=== PATIENT | female | born 1955 | race Caucasian/White ===

== ENCOUNTER → 2016-07-28 | Outpatient (CLI) | payer MEDICARE, OTHER | LOC: SP 12:30 | PROVIDERS: ATTEND Internal Medicine Clinical Cardiac Electrophysiology | DX: M79.622 Pain in left upper arm (principal) | CPT/HCPCS: 93971 ==

== ENCOUNTER 2018-02-11 19:06 | Inpatient (IN) | payer MEDICARE ==
--- NOTE | 2018-02-11 19:40 | RADIOLOGY REPORT (SQ) ---
EXAM DESCRIPTION: CT HEAD WITHOUT COMPLETED DATE/TIME: 02/11/2018 7:17 pm REASON FOR STUDY: bed t1 stroke alert COMPARISON: 11/04/2011. TECHNIQUE: Axial images acquired through the brain without intravenous contrast. Images reviewed wi th bone, brain and subdural windows. Additional sagittal and coronal reconstructions were generated. Images stored on PACS. All CT scanners at this facility use dose modulation, iterative reconstruction, and/or weight based d osing when appropriate to reduce radiation dose to as low as reasonably achievable (ALARA). [facility]: Dose Right [facility]: CareDose [facility]: Dose Right [facility]: Teradose 4D [facility]: Smart Apparent RADIATION DOSE: mGy. LIMITATIONS: None. FINDINGS: VENTRICLES: Normal size and contour. CEREBRUM: No masses. No hemorrhage. No midline shift. No evidence for acute infarction. Normal gra y/white matter differentiation. No areas of low density in the white matter. CEREBELLUM: No masses. No hemorrhage. No alteration of density. No evidence for acute infarction. EXTRAAXIAL SPACES: No fluid collections. No masses. ORBITS AND GLOBE: No intra- or extraconal masses. Normal contour of globe without masses. CALVARIUM: No fracture. PARANASAL SINUSES: No fluid or mucosal thickening. SOFT TISSUES: No mass or hematoma. OTHER: No other significant finding. IMPRESSION: NORMAL BRAIN CT WITHOUT CONTRAST. EVIDENCE OF ACUTE STROKE: NO. COMMENT: Pertinent positive or negative findings of the imaging study reported as a CRITICAL EXAM t o ER PROVIDER at19:32 on 02/11/2018. Category of Critical Exam: Stroke protocol. Quality ID # [id number]: Final reports with documentation of one or more dose reduction techniques (e.g., Au tomated exposure control, adjustment of the mA and/or kV according to patient size, use of iterative reconstruction technique) TECHNICAL DOCUMENTATION: JOB ID: [id number] [employer]- All Rights Reserved Reading location - IP/workstation name: [email or web address]
--- NOTE | 2018-02-11 19:44 | RADIOLOGY REPORT (SQ) ---
EXAM DESCRIPTION: CHEST SINGLE VIEW COMPLETED DATE/TIME: 02/11/2018 7:20 pm REASON FOR STUDY: bed t1 stroke alert COMPARISON: 11/01/2012. EXAM PARAMETERS: NUMBER OF VIEWS: One view. TECHNIQUE: Single frontal radiographic view of the chest acquired. RADIATION DOSE: NA LIMITATIONS: None. FINDINGS: LUNGS AND PLEURA: Left lower lobe consolidation with pleural effusion. Right lung clear. MEDIASTINUM AND HILAR STRUCTURES: No masses. Contour normal. HEART AND VASCULAR STRUCTURES: Heart normal in size. Normal vasculature. BONES: No acute findings. HARDWARE: None in the chest. OTHER: Vascular access port. Defibrillator. IMPRESSION: LEFT LOWER LOBE CONSOLIDATION WITH LEFT PLEURAL EFFUSION. TECHNICAL DOCUMENTATION: JOB ID: [id number] [employer]- All Rights Reserved Reading location - IP/workstation name: [email or web address]
--- NOTE | 2018-02-11 20:07 | EKG REPORT ---
SEVERITY:- ABNORMAL ECG - VENTRICULAR-PACED COMPLEXES RIGHT ATRIAL ABNORMALITY BORDERLINE T ABNORMALITIES, LATERAL LEADS : Confirmed by: Keyonna Leon MD 11-Feb-2018 20:06:42
[2018-02-11 20:22] LABS: ABSOLUTE BASOPHILS # (AUTO) 0.1 10^3/uL (0.0-0.2); ABSOLUTE EOSINOPHILS # (AUTO) 0.1 10^3/uL (0.0-0.6); ABSOLUTE LYMPHOCYTES (AUTO) 1.1 10^3/uL (0.5-4.7); ABSOLUTE MONOCYTES (AUTO) 0.5 10^3/uL (0.1-1.4); ABSOLUTE NEUT (AUTO) 4.6 10^3/uL (1.7-8.2); BASOPHILS % (AUTO) 1.5 % (0-2); EOSINOPHILS % (AUTO) 0.9 % (0-6); HEMATOCRIT 37.9 % (36.0-47.0); HEMOGLOBIN 12.8 g/dL (12.0-15.5); LYMPHOCYTES % (AUTO) 17.2 % (13-45); MEAN CORPUSCULAR HEMOGLOBIN 32.1 pg (27.0-33.4); MEAN CORPUSCULAR HGB CONC 33.6 g/dL (32.0-36.0); MEAN CORPUSCULAR VOLUME 95 fl (80-97); MONOCYTES % (AUTO) 7.4 % (3-13); PLATELET COUNT 315 10^3/uL (150-450); RED BLOOD COUNT 3.98 10^6/uL (3.72-5.28); RED CELL DISTRIBUTION WIDTH 14.5 % (11.5-14.0); TOTAL CELLS COUNTED % (AUTO) 100 %; WHITE BLOOD COUNT 6.3 10^3/uL (4.0-10.5)
[2018-02-11 20:51] LABS: ALANINE AMINOTRANSFERASE 23 U/L (9-52); ALBUMIN 4.4 g/dL (3.5-5.0); ALKALINE PHOSPHATASE 98 U/L (38-126); ANION GAP 12 (5-19); ASPARTATE AMINO TRANSFERASE 22 U/L (14-36); BILIRUBIN,DIRECT 0.3 mg/dL (0.0-0.4); BILIRUBIN,TOTAL 0.5 mg/dL (0.2-1.3); BLOOD UREA NITROGEN 15 mg/dL (7-20); CALCIUM 9.7 mg/dL (8.4-10.2); CARBON DIOXIDE 20 mmol/L (22-30); CHLORIDE 108 mmol/L (98-107); CREATINE KINASE 44 U/L (30-135); GLUCOSE 96 mg/dL (75-110); POTASSIUM 4.3 mmol/L (3.6-5.0); SODIUM 139.7 mmol/L (137-145); TOTAL PROTEIN 7.6 g/dL (6.3-8.2)
[2018-02-11 21:00] LABS: CREATINE KINASE MB 0.36 ng/mL (<4.55); TROPONIN I 0.012 ng/mL
[2018-02-11 21:32] LABS: PARTIAL THROMBOPLASTIN TIME 27.6 SEC (23.5-35.8)
[2018-02-11 21:39] LABS: PROTHROMBIN TIME 12.9 SEC (11.4-15.4)
[2018-02-11 21:40] LABS: INTERNATIONAL RATION (INR) 0.93
--- NOTE | 2018-02-11 22:00 | ER Document Report ---
ED General - General Chief Complaint: S/S of Possible Stroke Stated Complaint: POSSIBLE STROKE Time Seen by Provider: 02/11/18 20:38 Mode of Arrival: Medic Information source: Patient, Relative, Emergency Med Personnel Notes: This is a 62-year-old female with a history of breast cancer, hypertension and a recent left pleural effusion who presents to the emergency room with an acute onset of expressive aphasia. This started 30 minutes prior to arrival. EMS reports that the patient's expressive aphasia was dense on their arrival and she was unable to speak. I met the patient in the CAT scan and she was having significant difficulty speaking. By the time the CT scan was done and the patient was evaluated with an NIH in trauma 1, her speech had significantly improved. TRAVEL OUTSIDE OF THE [place] IN LAST 30 DAYS: No - HPI Onset: Just prior to arrival Onset/Duration: Sudden Quality of pain: No pain Severity: None Pain Level: Denies Associated symptoms: denies: Chest pain, Fever, Shortness of breath Exacerbated by: Denies Relieved by: Denies Similar symptoms previously: No Recently seen / treated by doctor: No - Related Data Allergies/Adverse Reactions: No Known Allergies Allergy (Verified 02/11/18 19:44) Past Medical History - General Information source: Patient - Social History Smoking Status: Unknown if Ever Smoked Cigarette use (# per day): No Chew tobacco use (# tins/day): No Frequency of alcohol use: None Drug Abuse: None Lives with: Family Family History: CAD - late 60, CVA, Malignancy - melanoma mets Patient has suicidal ideation: No Patient has homicidal ideation: No - Past Medical History Cardiac Medical History: Reports: Hx Hypercholesterolemia, Hx Hypertension Renal/ Medical History: Denies: Hx Peritoneal Dialysis GI Medical History: Denies: Hx Gastroesophageal Reflux Disease, Hx Hiatal Hernia Past Surgical History: Reports: Hx Appendectomy, Hx Hysterectomy, Hx Orthopedic Surgery - back - Immunizations Hx Diphtheria, Pertussis, Tetanus Vaccination: Yes Review of Systems - Review of Systems Constitutional: denies: Chills, Fever EENT: No symptoms reported Cardiovascular: No symptoms reported Respiratory: No symptoms reported Gastrointestinal: No symptoms reported Genitourinary: No symptoms reported Female Genitourinary: No symptoms reported Musculoskeletal: No symptoms reported Skin: No symptoms reported Hematologic/Lymphatic: No symptoms reported Neurological/Psychological: See HPI Physical Exam - Vital signs Vitals: Pulse Resp BP Pulse Ox 109 H 17 138/86 H 97 02/11/18 19:11 02/11/18 19:11 02/11/18 19:11 02/11/18 19:11 Notes: Physical exam: GENERAL: 62-year-old female, she is alert, clear expressive aphasia HEAD: Atraumatic, normocephalic. EYES: Pupils equal round and reactive to light, extraocular movements intact, sclera anicteric, conjunctiva are normal. ENT: TMs normal, nares patent, oropharynx clear without exudates. Moist mucous membranes. NECK: Normal range of motion, supple without obvious mass or JVD. LUNGS: Breath sounds clear to auscultation bilaterally and equal. No wheezes rales or rhonchi. HEART: Regular rate and rhythm without murmurs, rubs or gallops. ABDOMEN: Soft, normoactive bowel sounds. No tenderness to palpation. No guarding, no rebound. No masses appreciated. EXTREMITIES: Normal range of motion, no pitting or edema. No clubbing or cyanosis. NEUROLOGICAL: Cranial nerves II through XII grossly intact. He has an expressive aphasia, it is improving during my exam. Her NIH is 3 (filled out in paper on chart). While she received 0 is for holding up her arms and legs, assessing her gait later on did reveal that she was swaying to the right side and she might have some subtle right-sided weakness. PSYCH: Normal mood, normal affect. SKIN: Warm, Dry, normal turgor, no rashes or lesions noted. Course - Re-evaluation Re-evalutation: 02/11/18 23:28 Note: I have had a long discussion with the patient as well as her . The patient does not meet criteria for thrombolytics based upon rapidly improving symptoms. I went over the risks of thrombolytics should her symptoms return. However, both she and her are in agreement with our decision to withhold thrombolytics given the risks and her significant improvement. - Vital Signs Vital signs: Temp Pulse Resp BP Pulse Ox 97.9 F 106 H 18 139/81 H 97 02/11/18 20:00 02/11/18 19:25 02/11/18 23:01 02/11/18 23:00 02/11/18 23:01 - Laboratory Result Diagrams: 02/11/18 20:00 02/11/18 20:00 Laboratory results interpreted by me: 02/11/18 02/11/18 20:00 20:00 RDW 14.5 H Chloride 108 H Carbon Dioxide 20 L - Diagnostic Test Radiology reviewed: Image reviewed, Reports reviewed - CT of the head shows no acute bleed Chest x-ray shows a known left pleural effusion - EKG Interpretation by Me When compared to previous EKG there are: Other - Paced rhythm with a ventricular rate of 91, no acute ST-T wave changes Critical Care Note - Critical Care Note Total time excluding time spent on procedures (mins): 60 Discharge - Discharge Clinical Impression: CVA Condition: Stable Disposition: ADMITTED INPATIENT Admitting Provider: Hospitalist - Dr Jenkins Unit Admitted: [facility]
[2018-02-11] MEDS ORDERED: ALPRAZOLAM 0.5 MG TABLET PO ONE (23:21)
[2018-02-11] MEDS ORDERED: METOPROLOL SUCCINATE 50 MG TAB.SR.24H PO ONE (23:24)
[2018-02-11] MEDS ORDERED: ASPIRIN 81 MG TABLET, CHEWABLE PO ONE (23:24)
[2018-02-11] MEDS ORDERED: ACETAMINOPHEN 325 MG TABLET PO PRN (23:41)
[2018-02-11] MEDS ORDERED: ONDANSETRON 4 MG TAB.RAPDIS PO PRN (23:41)
[2018-02-11] MEDS ORDERED: MAGNESIUM HYDROXIDE SUSP 30 ML UDCUP PO PRN (23:41)
[2018-02-11] MEDS ORDERED: DOCUSATE SODIUM 100 MG CAPSULE PO PRN (23:41)
[2018-02-12] MEDS ORDERED: ATORVASTATIN CALCIUM 40 MG TABLET PO ONE (00:20)
[2018-02-12 00:41] LABS: APPEARANCE,URINE SLIGHTLY-CLOUDY; BILIRUBIN,URINE NEGATIVE (NEGATIVE); COLOR,URINE YELLOW; GLUCOSE, URINE NEGATIVE (NEGATIVE); KETONES,URINE NEGATIVE (NEGATIVE); LEUKOCYTE ESTERASE,URINE LARGE (NEGATIVE); NITRITE,URINE NEGATIVE (NEGATIVE); PROTEIN,URINE NEGATIVE (NEGATIVE); URINE SPECIFIC GRAVITY 1.014; UROBILINOGEN,URINE NEGATIVE mg/dL (<2.0)
--- NOTE | 2018-02-12 03:23 | PDOC H&P ---
History of Present Illness Admission Date/PCP: 02/11/18 22:09 DARREN RIGGS MD Patient complains of: Inability to talk History of Present Illness: FANNIE YODER is a 62 year old female who was sitting around 6:30 PM with her has been and suddenly she could not talk, she was unable to have her warts out and told her to call the EMS. He did not notice any facial droop, the patient denies having weakness on any extremity, numbness or tingling. Denies any vision problems. By the time I went to see her she still had some expressive aphasia but was improving. CT of the head negative. Denies any history of a stroke in the past. At my examination she has mild weakness on her right upper and lower extremity but she was able to walk to the bathroom. Patient did not meet criteria for TPA. Patient tells me that 2 weeks ago she had a thoracentesis on the left side secondary to pleural effusion, she had some milky fluid that was negative for malignancy as she has history of breast cancer. She is a schedule for diagnostic thoracentesis next Tuesday, initially patient did not want to have aspirin for this reason but later on she agrees. tells me that since the thoracentesis she has been keeping a very low blood pressures for a week 80s over 50s, blood pressure recorded in the ED was 120/70 Past Medical History Cardiac Medical History: Reports: Congestive Heart Failure - Chronic systolic CHF, unknown EF, Hyperlipidema, Hypertension, Other - History of paroxysmal V. tach LBBB Subclavian syndrome Pulmonary Medical History: Reports: Other - Left pleural effusion Malignancy Medical History: Reports: Breast Cancer - Status post chemotherapy and radiation therapy GI Medical History: Reports: Other - Chronic diarrhea for 1 year Musculoskeltal Medical History: Reports: Other - Left upper extremity lymphedema Psychiatric Medical History: Reports: Depression - anxiety Past Surgical History Past Surgical History: Reports: Appendectomy, Hysterectomy, Orthopedic Surgery - back, Pacemaker - ICD placement Social History Lives with: Family Smoking Status: Former Smoker Number of Years Smokin Last Time Smoked: quit 20 yrs ago Frequency of Alcohol Use: Rare Hx Recreational Drug Use: No Drugs: None Hx Prescription Drug Abuse: No - Advance Directive Resuscitation Status: Full Code Family History Family History: CAD - late 60, CVA, Malignancy - melanoma mets Parental Family History Reviewed: Yes - As above Children Family History Reviewed: NA Sibling(s) Family History Reviewed.: NA Medication/Allergy Home Medications: Cetirizine HCl [Zyrtec] 10 mg PO DAILY 11/03/11 Fluoxetine HCl [Prozac] 40 mg PO DAILY 11/03/11 Alprazolam 1 mg PO QHS 02/12/18 Cholecalciferol (Vitamin D3) [Vitamin D3 1000 Unit Tablet] 1,000 unit PO DAILY 02/12/18 Furosemide [Lasix] 40 mg PO QHS 02/12/18 Letrozole 2.5 mg PO DAILY 02/12/18 Metoprolol Succinate [Toprol Xl] 50 mg PO QHS 02/12/18 Omeprazole 40 mg PO DAILY 02/12/18 Potassium Chloride 20 meq PO DAILY 02/12/18 Sacubitril/Valsartan [Entresto 24 mg-26 mg Tablet] 1 each PO DAILY 02/12/18 Allergies/Adverse Reactions: digoxin Allergy (Verified 02/12/18 01:05) Diarrhea levofloxacin [From Levaquin] Allergy (Verified 02/12/18 01:05) Review of Systems Review of Systems: As outlined in the HPI, all others negative Physical Exam Vital Signs: Temp Pulse Resp BP Pulse Ox 97.3 F 75 18 129/79 H 97 02/12/18 00:59 02/12/18 00:59 02/12/18 00:59 02/12/18 00:59 02/12/18 00:59 Intake & Output 02/10/18 02/11/18 02/12/18 06:59 06:59 06:59 Weight 72.5 kg Additional comments: General appearance: Well-developed, well-nourished, alert and cooperative, and appears to be in no acute distress Head: Normocephalic Eyes: PEERL, EOMI, vision is grossly intact. Ears: External auditory canal and tympanic membranes clear, hearing grossly intact. Nose: No nasal discharge. Throat: Oral cavity and pharynx normal. No inflammation, swelling, exudate or lesions. Neck: Neck supple, nontender without lymphadenopathy, masses or thyromegaly. Cardiac: Normal S1 and S2. No S3, S4 or murmurs. Rhythm is regular. There is no peripheral edema, cyanosis or pallor. Extremities are warm and well perfused. Capillary refill is less than 2 seconds. No carotid bruits. Lungs: Clear to auscultation and percussion without rales, rhonchi, wheezing or diminished breath sounds. Not using accessory muscles. Abdomen: Positive bowel sounds. Soft. Nondistended, nontender. No guarding or rebound. No masses. No hepatosplenomegaly Extremities: No significant deformity or joint abnormality. No edema. Peripheral pulses intact. No varicosities. Neurological: Cranial nerves II through XII grossly intact. Strength decrease in the right upper and lower extremity. Sensation intact. Expressive aphasia. Skin: Skin normal color, texture and turgor with no lesions or eruptions, warm and dry. Psychiatric: The mental examination revealed the patient was oriented to person , place, and time. The patient was able to demonstrate good judgment on recent , without hallucinations, abnormal affect or abnormal behaviors. Results Laboratory Results: 02/11/18 02/11/18 02/11/18 19:22 20:00 20:00 WBC 6.3 RBC 3.98 Hgb 12.8 Hct 37.9 MCV 95 MCH 32.1 MCHC 33.6 RDW 14.5 H Plt Count 315 Seg Neutrophils % 73.0 Lymphocytes % 17.2 Monocytes % 7.4 Eosinophils % 0.9 Basophils % 1.5 Absolute Neutrophils 4.6 Absolute Lymphocytes 1.1 Absolute Monocytes 0.5 Absolute Eosinophils 0.1 Absolute Basophils 0.1 PT INR APTT Sodium 139.7 Potassium 4.3 Chloride 108 H Carbon Dioxide 20 L Anion Gap 12 BUN 15 Creatinine 0.91 Est GFR ( Amer) > 60 Est GFR (Non-Af Amer) > 60 Glucose 96 POC Glucose 88 Calcium 9.7 Total Bilirubin 0.5 Direct Bilirubin 0.3 AST 22 ALT 23 Alkaline Phosphatase 98 Creatine Kinase 44 CK-MB (CK-2) Troponin I Total Protein 7.6 Albumin 4.4 Urine Color Urine Appearance Urine pH Ur Specific [place] Urine Protein Urine Glucose (UA) Urine Ketones Urine Bilirubin Urine Urobilinogen Ur Leukocyte Esterase Urine WBC (Auto) Urine RBC (Auto) U Hyaline Cast (Auto) Urine Bacteria (Auto) Squamous Epi Cells Auto Urine Mucus (Auto) Urine Ascorbic Acid 02/11/18 02/11/18 02/11/18 20:00 21:14 21:56 WBC RBC Hgb Hct MCV MCH MCHC RDW Plt Count Seg Neutrophils % Lymphocytes % Monocytes % Eosinophils % Basophils % Absolute Neutrophils Absolute Lymphocytes Absolute Monocytes Absolute Eosinophils Absolute Basophils PT 12.9 INR 0.93 APTT 27.6 Sodium Potassium Chloride Carbon Dioxide Anion Gap BUN Creatinine Est GFR ( Amer) Est GFR (Non-Af Amer) Glucose POC Glucose Calcium Total Bilirubin Direct Bilirubin AST ALT Alkaline Phosphatase Creatine Kinase CK-MB (CK-2) 0.36 Troponin I 0.012 Total Protein Albumin Urine Color YELLOW Urine Appearance SLIGHTLY-CLOUDY Urine pH 5.0 Ur Specific [place] 1.014 Urine Protein NEGATIVE Urine Glucose (UA) NEGATIVE Urine Ketones NEGATIVE Urine Bilirubin NEGATIVE Urine Urobilinogen NEGATIVE Ur Leukocyte Esterase LARGE H Urine WBC (Auto) 53 Urine RBC (Auto) 2 U Hyaline Cast (Auto) 1 Urine Bacteria (Auto) TRACE Squamous Epi Cells Auto 1 Urine Mucus (Auto) MOD Urine Ascorbic Acid NEGATIVE Impressions: Chest X-Ray 02/11/18 19:10 IMPRESSION: LEFT LOWER LOBE CONSOLIDATION WITH LEFT PLEURAL EFFUSION. Head CT 02/11/18 19:10 IMPRESSION: NORMAL BRAIN CT WITHOUT CONTRAST. EVIDENCE OF ACUTE STROKE: NO. Assessment & Plan - Diagnosis (1) CVA (cerebral vascular accident) Qualifiers: Laterality of affected vessel: unspecified Is this a current diagnosis for this admission?: Yes Plan: Patient comes with expressive aphasia, CT of the head negative, she was not a candidate for TPA and symptoms have improved. We will go ahead and place CVA, measures, MRI of the head, PT, OT, swallow evaluation. We will start the patient on aspirin and statins. Carotid ultrasound. Echocardiogram. Patient passed bedside swallow evaluation and I will place her on diet. Neurochecks every 4 hours. (2) UTI (urinary tract infection) Is this a current diagnosis for this admission?: Yes Plan: Rocephin IV. Please follow urine cultures. 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 Oncologist Dr Trice Armijo (4) Chronic diarrhea Is this a current diagnosis for this admission?: Yes Plan: Patient has been having chronic diarrhea for the last year, multiple test done. (5) Pleural effusion, left Is this a current diagnosis for this admission?: Yes Plan: Left pleural effusion with thoracentesis 2 weeks ago, negative for malignancy. Apparently fluid was not tested for some specific laboratory and the patient was asked to go back next Tuesday for a diagnosis thoracentesis. So far chest x -ray does not show significant pleural effusion. (6) CAD (coronary artery disease) Is this a current diagnosis for this admission?: Yes Plan: History of LBBB, defibrillator in place, CHF. Patient does not have any cardiac symptomatology. Continue with home medications. Middleware Consultant Dr Miguel Jarrell - Time Time Spent: 30 to 50 Minutes - Inpatient Certification Based on my medical assessment, after consideration of the patient's comorbidities, presenting symptoms, or acuity I expect that the services needed warrant INPATIENT care.: Yes I certify that my determination is in accordance with my understanding of Medicare's requirements for reasonable and necessary INPATIENT services [42 CFR 412.3e].: Yes Medical Necessity: Risk of Diagnosis Which Will Require Inpatient Eval/Care/ Monitoring
[2018-02-12] MEDS ORDERED: CEFTRIAXONE 1 GM/D5W RTU 1 GM/50 ML RTUPB IV SCH (04:00)
[2018-02-12 05:23] LABS: ABSOLUTE BASOPHILS # (AUTO) 0.1 10^3/uL (0.0-0.2); ABSOLUTE EOSINOPHILS # (AUTO) 0.1 10^3/uL (0.0-0.6); ABSOLUTE LYMPHOCYTES (AUTO) 1.3 10^3/uL (0.5-4.7); ABSOLUTE MONOCYTES (AUTO) 0.4 10^3/uL (0.1-1.4); BASOPHILS % (AUTO) 1.7 % (0-2); EOSINOPHILS % (AUTO) 1.9 % (0-6); HEMATOCRIT 35.5 % (36.0-47.0); HEMOGLOBIN 12.1 g/dL (12.0-15.5); MEAN CORPUSCULAR HEMOGLOBIN 32.2 pg (27.0-33.4); MEAN CORPUSCULAR HGB CONC 34.1 g/dL (32.0-36.0); MEAN CORPUSCULAR VOLUME 95 fl (80-97); MONOCYTES % (AUTO) 7.5 % (3-13); PLATELET COUNT 239 10^3/uL (150-450); RED BLOOD COUNT 3.76 10^6/uL (3.72-5.28); RED CELL DISTRIBUTION WIDTH 14.3 % (11.5-14.0); SEGMENTED NEUTROPHILS % (AUTO) 62.9 % (42-78); TOTAL CELLS COUNTED % (AUTO) 100 %; WHITE BLOOD COUNT 4.8 10^3/uL (4.0-10.5)
[2018-02-12] MEDS ORDERED: CEFTRIAXONE INJ 500 MG VIAL ONE (05:48)
[2018-02-12 06:05] LABS: ALANINE AMINOTRANSFERASE 16 U/L (9-52); ALBUMIN 3.8 g/dL (3.5-5.0); ANION GAP 8 (5-19); ASPARTATE AMINO TRANSFERASE 15 U/L (14-36); BILIRUBIN,DIRECT 0.4 mg/dL (0.0-0.4); BILIRUBIN,TOTAL 0.6 mg/dL (0.2-1.3); BLOOD UREA NITROGEN 12 mg/dL (7-20); CALCIUM 9.3 mg/dL (8.4-10.2); CARBON DIOXIDE 22 mmol/L (22-30); CHLORIDE 110 mmol/L (98-107); CHOLESTEROL 248.45 mg/dL (0-200); GLUCOSE 86 mg/dL (75-110); POTASSIUM 3.6 mmol/L (3.6-5.0); SODIUM 139.9 mmol/L (137-145); TOTAL PROTEIN 6.3 g/dL (6.3-8.2); TRIGLYCERIDES 144 mg/dL (<150)
[2018-02-12 06:15] LABS: DIRECT LDL 175 mg/dL (<100)
[2018-02-12 06:39] LABS: ALKALINE PHOSPHATASE 91 U/L (38-126)
[2018-02-12] MEDS: SACUBITRIL/VALSARTAN 24 MG/26 MG TABLET PO SCH (10:23)
[2018-02-12] MEDS: LANSOPRAZOLE 30 MG TAB.RAP.DR PO SCH (10:23)
[2018-02-12] MEDS: POTASSIUM CHLORIDE 10 MEQ CAPSULE.ER PO SCH (10:23)
[2018-02-12] MEDS: LETROZOLE 2.5 MG TABLET PO SCH (10:23)
[2018-02-12] MEDS: FLUOXETINE HCL 20 MG CAPSULE PO SCH (10:23)
[2018-02-12] MEDS: CHOLECALCIFEROL (D3) 1,000 UNIT TABLET PO SCH (10:23)
[2018-02-12] MEDS: ENOXAPARIN SODIUM INJ 40 MG/0.4 ML DISP.SYRIN SUBCUT SCH (10:24)
[2018-02-12] MEDS: ASPIRIN 81 MG TABLET, ENT COATED PO SCH (10:24)
[2018-02-12] MEDS: CETIRIZINE 10 MG TABLET PO SCH (10:24)
[2018-02-12] MEDS: FUROSEMIDE 40 MG TABLET PO SCH (22:14)
[2018-02-12] MEDS: ATORVASTATIN CALCIUM 40 MG TABLET PO SCH (22:15)
[2018-02-12] MEDS: METOPROLOL SUCCINATE 50 MG TAB.SR.24H PO SCH (22:15)
[2018-02-12] MEDS: ALPRAZOLAM 0.5 MG TABLET PO SCH (22:16)
[2018-02-13] MEDS: CEFTRIAXONE SODIUM 1,000 MG in NORMAL SALINE 50 ML IV SCH (05:44)
[2018-02-13] MEDS: ASPIRIN 81 MG TABLET, ENT COATED PO SCH (09:31)
[2018-02-13] MEDS: CHOLECALCIFEROL (D3) 1,000 UNIT TABLET PO SCH (09:31)
[2018-02-13] MEDS: SACUBITRIL/VALSARTAN 24 MG/26 MG TABLET PO SCH (09:31)
[2018-02-13] MEDS: POTASSIUM CHLORIDE 10 MEQ CAPSULE.ER PO SCH (09:31)
[2018-02-13] MEDS: CETIRIZINE 10 MG TABLET PO SCH (09:31)
[2018-02-13] MEDS: FLUOXETINE HCL 20 MG CAPSULE PO SCH (09:31)
[2018-02-13] MEDS: LANSOPRAZOLE 30 MG TAB.RAP.DR PO SCH (09:31)
[2018-02-13] MEDS: LETROZOLE 2.5 MG TABLET PO SCH (09:31)
[2018-02-13] MEDS: ENOXAPARIN SODIUM INJ 40 MG/0.4 ML DISP.SYRIN SUBCUT SCH (09:32)
[2018-02-13] MEDS ORDERED: LIDOCAINE 1% INJ-PF (10 MG/ML) 30 ML SDV ONE (14:22)
--- NOTE | 2018-02-13 15:26 | RADIOLOGY REPORT (SQ) ---
EXAM DESCRIPTION: U/S THORACENTESIS WITH IMAGING COMPLETED DATE/TIME: 02/13/2018 3:17 pm REASON FOR STUDY: Pleural effusion (L) COMPARISON: CT chest 12/27/2017 [facility] AP chest 02/11/2018 LIMITATIONS: None. PROCEDURE: Procedure, risks, benefit, and alternative explained to patient who then gave written con sent. The posterior left chest wall was marked using ultrasound guidance. A time-out was called for correct marking verification. Chest prepped and draped using sterile technique. Local anesthesia ac hieved using 5 ml of 1% lidocaine injection. A 6fr Safe-T- Centesis set was introduced into the left pleural space. Fluid was aspirated. The catheter was removed and the entry site was covered with s terile bandage. No immediate complications noted. No pneumothorax on immediate post procedure chest x-ray dictated separately. Specimens of the pleural fluid was sent for testing as per hospitalist physician Images acquired during the procedure were stored on PACS. FINDINGS: ENTRY SITE: posterior left chest. FLUID VOLUME: 850 mL FLUID ANALYSIS: Milky white fluid OTHER: Sent for testing as per hospitalist physician IMPRESSION: SUCCESSFUL THORACENTESIS USING ULTRASOUND GUIDANCE. COMMENT: Patient medication list reviewed: Yes- Quality ID# [id number]:Eligible professional attests to doc umenting in the medical record they obtained, updated, or reviewed the patient's current medications. TECHNICAL DOCUMENTATION: JOB ID: [id number] [employer]- All Rights Reserved Reading location - IP/workstation name: [email or web address]
--- NOTE | 2018-02-13 15:45 | RADIOLOGY REPORT (SQ) ---
EXAM DESCRIPTION: CHEST SINGLE VIEW COMPLETED DATE/TIME: 02/13/2018 3:18 pm REASON FOR STUDY: S/P LEFT PLEURAL EFFUSION COMPARISON: 02/11/2018 chest film Thoracentesis [facility] 01/12/2018 EXAM PARAMETERS: NUMBER OF VIEWS: One view. TECHNIQUE: Single frontal radiographic view of the chest acquired. RADIATION DOSE: NA LIMITATIONS: None. FINDINGS: LUNGS AND PLEURA: Immediate post left thoracentesis with removal of 850 mL of fluid from t he left chest. No left-sided pneumothorax. Minimal persistent airspace disease and trace pleural fl uid at the left lung base. Right lung clear. No right effusion. MEDIASTINUM AND HILAR STRUCTURES: No masses. Contour normal. HEART AND VASCULAR STRUCTURES: Heart normal in size. Normal vasculature. BONES: No acute findings. HARDWARE: Right permanent central line . Left-sided pacemaker unchanged. OTHER: No other significant finding. IMPRESSION: No pneumothorax post left thoracentesis TECHNICAL DOCUMENTATION: JOB ID: [id number] [employer]- All Rights Reserved Reading location - IP/workstation name: [email or web address]
[2018-02-13 16:55] LABS: FLUID SOURCE LUNG; FLUID TYPE PLEURAL
[2018-02-13 16:56] LABS: FLUID APPEARANCE CLOUDY; FLUID VISCOSITY LIQUID
--- NOTE | 2018-02-13 17:38 | RADIOLOGY REPORT (SQ) ---
EXAM DESCRIPTION: CHEST SINGLE VIEW COMPLETED DATE/TIME: 02/13/2018 5:31 pm REASON FOR STUDY: 2 HOURS S/P LEFT THORACENTESIS COMPARISON: 02/13/2018 EXAM PARAMETERS: NUMBER OF VIEWS: One view. TECHNIQUE: Single frontal radiographic view of the chest acquired. RADIATION DOSE: NA LIMITATIONS: None. FINDINGS: LUNGS AND PLEURA: No pneumothorax. No infiltrate or effusion. MEDIASTINUM AND HILAR STRUCTURES: No masses. Contour normal. HEART AND VASCULAR STRUCTURES: Heart normal in size. Normal vasculature. BONES: No acute findings. HARDWARE: Pacemaker/defibrillator. Injection port on the right. OTHER: No other significant finding. IMPRESSION: NO ACUTE RADIOGRAPHIC FINDING IN THE CHEST. TECHNICAL DOCUMENTATION: JOB ID: [id number] [employer]- All Rights Reserved Reading location - IP/workstation name: [email or web address]
--- NOTE | 2018-02-13 17:53 | PDOC PROGRESS REPORT ---
Subjective Progress Note for:: 02/13/18 Subjective:: Patient was admitted with weakness on the right side. This weakness is largely disappeared. Patient does have a a pleural effusion for which she had thoracentesis today. In fact she just recently had thoracentesis at [facility] within the last couple of weeks. There is concern for it being malignant because patient has a history of inflammatory breast cancer but the one from [facility] was negative for malignancy. Fluid is being sent for cytology analysis again as well as the usual fluid analysis of thoracentesis and will follow Patient also had echocardiogram and carotid Doppler as scheduled due to her presenting symptoms and as of this time this have not been done so she will be kept in hospital and hopefully we can get this done tomorrow. Reason For Visit: ACUTE STROKE Physical Exam Vital Signs: Temp Pulse Resp BP Pulse Ox 97.5 F 88 20 98/51 L 96 02/13/18 15:31 02/13/18 15:31 02/13/18 15:31 02/13/18 15:31 02/13/18 15:31 Intake & Output 02/12/18 02/13/18 02/14/18 06:59 06:59 06:59 Intake Total 0 1396 50 Output Total 600 1500 1000 Balance -600 -104 -950 Weight 72.5 kg 74.8 kg General appearance: PRESENT: no acute distress, well-developed, well-nourished Head exam: PRESENT: atraumatic, normocephalic Eye exam: PRESENT: conjunctiva pink, EOMI, PERRLA. ABSENT: scleral icterus Ear exam: PRESENT: normal external ear exam Mouth exam: PRESENT: moist, tongue midline Neck exam: ABSENT: carotid bruit, JVD, lymphadenopathy, thyromegaly Respiratory exam: PRESENT: clear to auscultation sharri. ABSENT: rales, rhonchi, wheezes Cardiovascular exam: PRESENT: RRR, +S1, +S2. ABSENT: diastolic murmur, rubs, systolic murmur Pulses: PRESENT: normal dorsalis pedis pul Vascular exam: PRESENT: normal capillary refill GI/Abdominal exam: PRESENT: normal bowel sounds, soft. ABSENT: distended, guarding, mass, organolmegaly, rebound, tenderness Rectal exam: PRESENT: deferred Extremities exam: PRESENT: full ROM. ABSENT: calf tenderness, clubbing, pedal edema Neurological exam: PRESENT: alert, awake, oriented to person, oriented to place , oriented to time, oriented to situation, CN II-XII grossly intact, motor sensory deficit - mild weakness RUE Psychiatric exam: PRESENT: appropriate affect, normal mood. ABSENT: homicidal ideation, suicidal ideation Skin exam: PRESENT: dry, intact, warm. ABSENT: cyanosis, rash Results Laboratory Results: 02/12/18 04:34 02/12/18 04:34 Impressions: Head CT 02/11/18 19:10 IMPRESSION: NORMAL BRAIN CT WITHOUT CONTRAST. EVIDENCE OF ACUTE STROKE: NO. Chest X-Ray 02/13/18 00:00 IMPRESSION: No pneumothorax post left thoracentesis Thoracentesis Ultrasound 02/13/18 00:00 IMPRESSION: SUCCESSFUL THORACENTESIS USING ULTRASOUND GUIDANCE. Assessment & Plan - Diagnosis (1) Breast cancer Qualifiers: Laterality: bilateral Is this a current diagnosis for this admission?: Yes (2) CAD (coronary artery disease) Is this a current diagnosis for this admission?: Yes (3) CVA (cerebral vascular accident) Qualifiers: Laterality of affected vessel: unspecified Is this a current diagnosis for this admission?: Yes (4) Pleural effusion, left Is this a current diagnosis for this admission?: Yes (5) Cardiomyopathy Is this a current diagnosis for this admission?: Yes Plan: Possibly due to chemotherapy questionable anthracyclines and all radiation therapy. Patient has an AICD secondary to this. He is followed by Dr. Lau at [facility]. Patient will prefer to go back to [facility] for any issues dealing with her heart and as there appears to be no acute cardiac event at this time I will have a follow-up with Dr. Angel Can at [facility] - Time Time Spent with patient: 15-24 minutes Medications reviewed and adjusted accordingly: Yes Anticipated discharge: Home - Inpatient Certification Based on my medical assessment, after consideration of the patient's comorbidities, presenting symptoms, or acuity I expect that the services needed warrant INPATIENT care.: Yes Medical Necessity: Need For Continuous Telemetry Monitoring
[2018-02-13] MEDS: FUROSEMIDE 40 MG TABLET PO SCH (21:14)
[2018-02-13] MEDS: ALPRAZOLAM 0.5 MG TABLET PO SCH (21:15)
[2018-02-13] MEDS: ATORVASTATIN CALCIUM 40 MG TABLET PO SCH (21:15)
[2018-02-13] MEDS: METOPROLOL SUCCINATE 50 MG TAB.SR.24H PO SCH (21:15)
[2018-02-14] MEDS: CEFTRIAXONE SODIUM 1,000 MG in NORMAL SALINE 50 ML IV SCH (06:48)
[2018-02-14] MEDS: LETROZOLE 2.5 MG TABLET PO SCH (10:40)
[2018-02-14] MEDS: POTASSIUM CHLORIDE 10 MEQ CAPSULE.ER PO SCH (10:41)
[2018-02-14] MEDS: FLUOXETINE HCL 20 MG CAPSULE PO SCH (10:42)
[2018-02-14] MEDS: CETIRIZINE 10 MG TABLET PO SCH (10:42)
[2018-02-14] MEDS: SACUBITRIL/VALSARTAN 24 MG/26 MG TABLET PO SCH (10:42)
[2018-02-14] MEDS: CHOLECALCIFEROL (D3) 1,000 UNIT TABLET PO SCH (10:43)
[2018-02-14] MEDS: ENOXAPARIN SODIUM INJ 40 MG/0.4 ML DISP.SYRIN SUBCUT SCH (10:43)
[2018-02-14] MEDS: LANSOPRAZOLE 30 MG TAB.RAP.DR PO SCH (10:43)
[2018-02-14] MEDS: ASPIRIN 81 MG TABLET, ENT COATED PO SCH (10:43)
--- NOTE | 2018-02-14 12:03 | RADIOLOGY REPORT (SQ) ---
EXAM DESCRIPTION: CAROTID DOPPLER COMPLETED DATE/TIME: 02/14/2018 11:36 am REASON FOR STUDY: cva COMPARISON: None. TECHNIQUE: Grayscale ultrasound, Doppler velocity and spectra, and color Doppler images acquired of the extra-cranial carotid and vertebral arteries. Images stored on PACS. LIMITATIONS: None. FINDINGS: RIGHT CAROTID CCA Velocities: Within normal limits. ICA Velocities Peak systolic 1.09 m/s. End diastolic 0.35 m/s. Proximal ICA/CCA peak systolic ratio 1.2. Spectra normal. No significant plaque. LEFT CAROTID CCA Velocities: Within normal limits. ICA Velocities Peak systolic 1.08 m/s. End diastolic 0.38 m/s. Proximal ICA/CCA peak systolic ratio 0.8. Spectra normal. No significant plaque. VERTEBRAL ARTERIES: Antegrade flow. Normal waveforms. SUBCLAVIAN ARTERIES: Not imaged. OTHER: No other significant finding. IMPRESSION: NO HEMODYNAMICALLY SIGNIFICANT STENOSIS. COMMENT: Quality ID #[id number]: Velocity criteria are extrapolated from the diameter data as defined by t he Society of Radiologists in Ultrasound Consensus Conference. Radiology 2003: 229; 340-346. TECHNICAL DOCUMENTATION: JOB ID: [id number] 3 [id number] 5 [employer]- All Rights Reserved Reading location - IP/workstation name: [facility]
--- NOTE | 2018-02-14 14:43 | PDOC PROGRESS REPORT ---
Subjective Progress Note for:: 02/14/18 Subjective:: Patient was admitted with weakness on the right side. This weakness is largely disappeared. Patient does have a a pleural effusion for which she had thoracentesis today. In fact she just recently had thoracentesis at [facility] within the last couple of weeks. There is concern for it being malignant because patient has a history of inflammatory breast cancer but the one from [facility] was negative for malignancy. Fluid is being sent for cytology analysis again as well as the usual fluid analysis of thoracentesis and will follow Patient also had echocardiogram and carotid Doppler done results of which are pending Reason For Visit: ACUTE STROKE Physical Exam Vital Signs: Temp Pulse Resp BP Pulse Ox 97.1 F 96 17 121/75 92 02/14/18 11:13 02/14/18 12:00 02/14/18 12:00 02/14/18 12:00 02/14/18 12:00 Intake & Output 02/13/18 02/14/18 02/15/18 06:59 06:59 06:59 Intake Total 1396 1150 524 Output Total 1500 1725 Balance -104 -575 524 Weight 74.8 kg 72.8 kg General appearance: PRESENT: no acute distress, well-developed, well-nourished Head exam: PRESENT: atraumatic, normocephalic Eye exam: PRESENT: conjunctiva pink, EOMI, PERRLA. ABSENT: scleral icterus Ear exam: PRESENT: normal external ear exam Mouth exam: PRESENT: moist, tongue midline Neck exam: ABSENT: carotid bruit, JVD, lymphadenopathy, thyromegaly Respiratory exam: PRESENT: clear to auscultation sharri. ABSENT: rales, rhonchi, wheezes Cardiovascular exam: PRESENT: RRR. ABSENT: diastolic murmur, rubs, systolic murmur Pulses: PRESENT: normal dorsalis pedis pul Vascular exam: PRESENT: normal capillary refill GI/Abdominal exam: PRESENT: normal bowel sounds, soft. ABSENT: distended, guarding, mass, organolmegaly, rebound, tenderness Rectal exam: PRESENT: deferred Extremities exam: PRESENT: full ROM. ABSENT: calf tenderness, clubbing, pedal edema Musculoskeletal exam: PRESENT: other - Bilateral mastectomies Neurological exam: PRESENT: alert, awake, oriented to person, oriented to place , oriented to time, oriented to situation, CN II-XII grossly intact, other - slight memory gap but at baseline. ABSENT: motor sensory deficit Psychiatric exam: PRESENT: appropriate affect, normal mood. ABSENT: homicidal ideation, suicidal ideation Skin exam: PRESENT: dry, intact, warm. ABSENT: cyanosis, rash Results Laboratory Results: 02/12/18 04:34 02/12/18 04:34 02/13/18 14:51 Fluid Type PLEURAL Fluid Source LUNG Fluid Color Fluid Appearance CLOUDY Fluid Viscosity LIQUID Fluid WBC 5622 Fluid RBC 2622 Impressions: Head CT 02/11/18 19:10 IMPRESSION: NORMAL BRAIN CT WITHOUT CONTRAST. EVIDENCE OF ACUTE STROKE: NO. Chest X-Ray 02/13/18 00:00 IMPRESSION: NO ACUTE RADIOGRAPHIC FINDING IN THE CHEST. Thoracentesis Ultrasound 02/13/18 00:00 IMPRESSION: SUCCESSFUL THORACENTESIS USING ULTRASOUND GUIDANCE. Carotid Doppler Study 02/14/18 00:00 IMPRESSION: NO HEMODYNAMICALLY SIGNIFICANT STENOSIS. 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 Patient will need to follow-up with her oncologist Siri Armijo at [facility] for further management (2) CAD (coronary artery disease) Is this a current diagnosis for this admission?: Yes (3) CVA (cerebral vascular accident) Qualifiers: Laterality of affected vessel: unspecified Is this a current diagnosis for this admission?: Yes Plan: Patient may have had a TIA however there is no residual symptoms and patient appears to be back at a baseline at this time. MRI was not done due to patient' s pacemaker. (4) Pleural effusion, left Is this a current diagnosis for this admission?: Yes Plan: There is some concern due to possibility of a parapneumonic effusion especially with a high white blood cell count. Patient had been on oral antibiotics until about last week. 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 Patient has an AICD secondary to this. He is followed by Dr. Lau at [facility]. Patient will prefer to go back to [facility] for any issues dealing with her heart and as there appears to be no acute cardiac event at this time I will have a follow-up with Dr. 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 There is also 5622 WBCs as well as 2622 RBCs. Of course there is a concern as patient has a history of breast cancer. Of course there is also concern as patient just had a thoracentesis done about 3 weeks ago with aspiration of it 50 mL of milky white fluid essentially the same as well was aspirated yesterday. Cytology at the time had been negative this is less likely to be a cholesterol effusion given this patient's history. We will go ahead and check cholesterol level. 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 This patient will need more aggressive management however luckily at this time she appears to be relatively stable and she has an appointment with Dr. Martinez at [facility] on February 20. I will get in touch with his office to make sure that further management of this is promptly arranged. - Time Time Spent with patient: 25-34 minutes Medications reviewed and adjusted accordingly: Yes Anticipated discharge: Home Within: within 48 hours - Inpatient Certification Based on my medical assessment, after consideration of the patient's comorbidities, presenting symptoms, or acuity I expect that the services needed warrant INPATIENT care.: Yes Medical Necessity: Significant Comorbidiites Make Outpatient Treatment Too Risky , Need Close Monitoring Due to Risk of Patient Decompensation
--- NOTE | 2018-02-14 17:51 | XCELERA REPORT ---
[address] [address] Transthoracic Echocardiogram Report Name: FANNIE YODER Age: 62 yrs Gender: Female : 1955 Patient Status: Inpatient Patient Location: [address] [place] [address] Study Date: 02/14/2018 09:29 AM Procedure: A two-dimensional transthoracic echocardiogram with color flow and Doppler was performed. Study Quality: Technically suboptimal. The study was technically difficult with many images being suboptimal in quality. Reason For Study: cva History: CVA. Ordering Physician: KARIN THURMAN Performed By: Idania Oliveira Interpretation Summary There is no obvious cardiac source of embolus noted on this transthoracic echocardiogram. Follow-up with a LUISA is suggested if cardiac source is still suspected. The left ventricle is normal in size. There is normal left ventricular wall thickness. LV EF is 60% Left ventricular systolic function is normal. Doppler measurements suggest impaired left ventricular relaxation, which is associated with grade I/IV or mild diastolic dysfunction The left ventricular wall motion is normal. There is no thrombus. The right ventricle is not well visualized secondary to technical limitations The left atrial size is normal. There is no evidence of mitral valve prolapse. There is no mitral valve stenosis. There is no mitral regurgitation noted. There is no aortic valve stenosis There is no LVOT obstruction. No aortic regurgitation is present. There is no tricuspid stenosis. No tricuspid regurgitation. Unable to calculate RVSP due lack of TR jet. The pulmonic valve is not well visualized. The aortic root is not well visualized. There is no pericardial effusion. There is no obvious cardiac source of embolus noted on this transthoracic echocardiogram. Follow-up with a LUISA is suggested if cardiac source is still suspected MMode/2D Measurements & Calculations IVSd: 0.74 cm LVIDd: 5.0 cm FS: 30.5 % Ao root diam: 2.0 cm LVIDs: 3.5 cm EDV(Teich): 117.5 ml Ao root area: 3.2 cm2 LVPWd: 0.89 cm ESV(Teich): 49.7 ml EF(Teich): 57.7 % LA dimension: 1.9 cm LVOT diam: 1.6 cm LVOT area: 2.0 cm2 Doppler Measurements & Calculations MV E max ewa: MV P1/2t max ewa: Ao V2 max: LV V1 max P.3 cm/sec 56.5 cm/sec 70.5 cm/sec 1.3 mmHg MV A max ewa: MV P1/2t: 48.9 msec Ao max PG: LV V1 max: 85.5 cm/sec 2.0 mmHg 56.5 cm/sec MV E/A: 0.63 MVA(P1/2t): 4.5 cm2 MV dec slope: SARAH BETH(V,D): 1.6 cm2 338.0 cm/sec2 MV dec time: 0.16 sec PA V2 max: MV P1/2t-pr_phl: 52.1 cm/sec 48.9 msec PA max P.1 mmHg Left Ventricle The left ventricle is normal in size. There is normal left ventricular wall thickness. LV EF is 60%. Left ventricular systolic function is normal. Doppler measurements suggest impaired left ventricular relaxation, which is associated with grade I/IV or mild diastolic dysfunction. The left ventricular wall motion is normal. There is no thrombus. Right Ventricle The right ventricle is not well visualized secondary to technical limitations. Atria Right atrium not well visualized secondary to technical limitations. The left atrial size is normal. Mitral Valve There is no evidence of mitral valve prolapse. There is no vegetation seen on the mitral valve. There is no mitral valve stenosis. There is no mitral regurgitation noted. Aortic Valve There is no aortic valve stenosis. There is no LVOT obstruction. No aortic regurgitation is present. Tricuspid Valve There is no tricuspid stenosis. No tricuspid regurgitation. Unable to calculate RVSP due lack of TR jet. Pulmonic Valve The pulmonic valve is not well visualized. Great Vessels The aortic root is not well visualized. Effusions There is no pericardial effusion. : KARIN THURMAN > Keyonna Leon
--- NOTE | 2018-02-14 20:05 | Progress Note ---
Provider Note Provider Note: ID Consult Note Asked to review patient's chart by Dr Collins. Pt not seen or examined. Ms. Sloan is a 62 yo woman with PMH including inflammatory breast cancer, LUE lymphedema, chronic systolic CHF, HLD, HTN, h/o VT and LBBB s/p ICD placement. She presented on 02/11/18 to [place] [facility] with acute onset difficulty talking. Pt on admission noted to have resolving expressive aphasia and mild RUE and RLE weakness. Lungs were clear on exam. No fever was noted, nor abdominal pain. No urinary symptoms were documented. She did not meet tPA criteria, and she was admitted for further w/u of suspected CVA. Pt also disclosed recent hx of L sided thoracentesis at [facility] with milky fluid encountered that had cytology negative for malignancy and plans for repeat thoracentesis. L sided pleural effusion - At present, some pleural fluid studies are pending (including glucose, LDH, total protein, and cholesterol), but this appears likely to be an exudative pleural effusion, with lymphocytic predominance. Differential diagnosis includes malignancy, pleural TB, RA or sarcoidosis and chylothorax among other etiologies. - Recommend evaluating pt for TB risk factors (e.g. known contacts with TB, hx of employment in healthcare or prior incarceration, travel to TB-endemic area, HIV status) if not already done. PPD or Quantiferon may be helpful. Consider CT chest to evaluate lung parenchyma further. - Typical bacterial pneumonia would not be expected to account for this, and I doubt that the empiric Rocephin is necessary. Agree with plans to defer antibiotic therapy. Recommend discontinuing Rocephin. - If chylothorax suspected, consider adding on pleural triglyceride level. Asymptomatic bacteriuria - Pt found to have 53 WBC/hpf and trace bacteria on U/A on admission, and Rocephin was empirically started for suspected UTI. Pt did not have any irritative urinary clinical manifestations such as suprapubic tenderness, urinary urgency, or dysuria noted on H&P or ED provider evaluation. U/A abnormalities such as pyuria or presence of leukocyte esterase or bacteria are unfortunately not specific enough to allow for diagnosis of UTI to be made in absence of accompanying signs/symptoms; U/A cannot distinguish between bladder wall inflammation from any other etiology and UTI or between asymptomatic bacteriuria and UTI. If pt is not symptomatic, recommend discontinuing Rocephin. Miguel Katz MD [facility] Infectious Diseases pager [phone]
[2018-02-14] MEDS: FUROSEMIDE 40 MG TABLET PO SCH (23:39)
[2018-02-14] MEDS: ALPRAZOLAM 0.5 MG TABLET PO SCH (23:39)
[2018-02-14] MEDS: ATORVASTATIN CALCIUM 40 MG TABLET PO SCH (23:40)
[2018-02-14] MEDS: METOPROLOL SUCCINATE 50 MG TAB.SR.24H PO SCH (23:41)
[2018-02-15] MEDS: CEFTRIAXONE SODIUM 1,000 MG in NORMAL SALINE 50 ML IV SCH (06:02)
[2018-02-15] MEDS: POTASSIUM CHLORIDE 10 MEQ CAPSULE.ER PO SCH (10:03)
[2018-02-15] MEDS: ENOXAPARIN SODIUM INJ 40 MG/0.4 ML DISP.SYRIN SUBCUT SCH (10:03)
[2018-02-15] MEDS: ASPIRIN 81 MG TABLET, ENT COATED PO SCH (10:03)
[2018-02-15] MEDS: CHOLECALCIFEROL (D3) 1,000 UNIT TABLET PO SCH (10:03)
[2018-02-15] MEDS: FLUOXETINE HCL 20 MG CAPSULE PO SCH (10:03)
[2018-02-15] MEDS: LANSOPRAZOLE 30 MG TAB.RAP.DR PO SCH (10:03)
[2018-02-15] MEDS: CETIRIZINE 10 MG TABLET PO SCH (10:03)
[2018-02-15] MEDS: LETROZOLE 2.5 MG TABLET PO SCH (10:03)
[2018-02-15] MEDS: SACUBITRIL/VALSARTAN 24 MG/26 MG TABLET PO SCH (10:03)
[2018-02-15 15:24] LABS: ANION GAP 15 (5-19); BLOOD UREA NITROGEN 13 mg/dL (7-20); CALCIUM 9.2 mg/dL (8.4-10.2); CARBON DIOXIDE 19 mmol/L (22-30); CHLORIDE 104 mmol/L (98-107); GLUCOSE 117 mg/dL (75-110); POTASSIUM 3.5 mmol/L (3.6-5.0); SODIUM 137.8 mmol/L (137-145)
--- NOTE | 2018-02-15 16:39 | PDOC DISCHARGE SUMMARY ---
General - Admit/Disc Date/PCP Admission Date/Primary Care Provider: 02/11/18 22:09 DARREN RIGGS MD Discharge Date: 02/15/18 - Discharge Diagnosis (1) TIA (transient ischemic attack) Is this a current diagnosis for this admission?: Yes Summary: Asa, Lipitor (2) Breast cancer Is this a current diagnosis for this admission?: Yes (3) CAD (coronary artery disease) Is this a current diagnosis for this admission?: Yes (4) CVA (cerebral vascular accident) Is this a current diagnosis for this admission?: Yes (5) Pleural effusion, left Is this a current diagnosis for this admission?: Yes (6) Cardiomyopathy Is this a current diagnosis for this admission?: Yes (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 Is this a current diagnosis for this admission?: Yes (8) Dyslipidemia Is this a current diagnosis for this admission?: Yes - Additional Information Resuscitation Status: Full Code Discharge Diet: Cardiac Discharge Activity: Activity As Tolerated Prescriptions: Atorvastatin Calcium [Lipitor 40 mg Tablet] 40 mg PO QHS #30 tablet Home Medications: Albuterol Sulfate [Proair HFA Inhalation Aerosol 8.5 gm MDI] 2 puff IH Q6HP PRN 02/12/18 Alprazolam [Xanax] 1 mg PO QHS 02/12/18 Cetirizine HCl [Zyrtec 10 mg Tablet] 10 mg PO DAILY 02/12/18 Epinephrine [Epipen 2-Ammon] 0.3 mg IM ASDIR PRN 02/12/18 Fluoxetine HCl [Prozac] 40 mg PO DAILY 02/12/18 Furosemide [Lasix 40 mg Tablet] 40 mg PO QHS 02/12/18 Letrozole [Femara 2.5 mg Tablet] 2.5 mg PO DAILY 02/12/18 Metoprolol Succinate [Toprol Xl 50 mg Tab.sr] 50 mg PO QHS 02/12/18 Omeprazole 40 mg PO ACBRKFST 02/12/18 Potassium Chloride [K-Tab ER] 20 meq PO DAILY 02/12/18 Sacubitril/Valsartan [Entresto 24 mg-26 mg Tablet] 1 tab PO Q12 02/12/18 Aspirin [Ecotrin 81 mg EC Tablet] 81 mg PO DAILY tabec 02/15/18 Atorvastatin Calcium [Lipitor 40 mg Tablet] 40 mg PO QHS #30 tablet 02/15/18 History of Present Illness History of Present Illness: FANNIE YODER is a 62 year old female FANNIE YODER is a 62 year old female who was sitting around 6:30 PM with her has been and suddenly she could not talk, she was unable to have her warts out and told her to call the EMS. He did not notice any facial droop, the patient denies having weakness on any extremity, numbness or tingling. Denies any vision problems. By the time I went to see her she still had some expressive aphasia but was improving. CT of the head negative. Denies any history of a stroke in the past. At my examination she has mild weakness on her right upper and lower extremity but she was able to walk to the bathroom. Patient did not meet criteria for TPA. Patient tells me that 2 weeks ago she had a thoracentesis on the left side secondary to pleural effusion, she had some milky fluid that was negative for malignancy as she has history of breast cancer. She is a schedule for diagnostic thoracentesis next Tuesday, initially patient did not want to have aspirin for this reason but later on she agrees. tells me that since the thoracentesis she has been keeping a very low blood pressures for a week 80s over 50s, blood pressure recorded in the ED was 120/70 Hospital Course Hospital Course: patient was admitted with possible TIA. Found to be aphasic. She was she was monitored on telemetry floor. Patient symptoms had resolved really within 24 hours and she was able to remember the preceding events Patient was noted to have pleural effusion on chest x-ray. And so a thoracentesis was done with evacuation of 850 mL of milky fluid which was thought to be a chylothorax. There was concern due to patient's history of breast cancer however cytology yielded atypical cells but no malignant cells. Patient is status post a recent thoracentesis just about 3 weeks ago at [facility] and the results there also yielded no malignant cells. Because of this recurrent liquid milk he thoracentesis there continues to be a concern for possible malignancy as well as this may be related to patient's history of lymph node dissection. Cholesterol levels and triglyceride level in pleural fluid pending. Patient had no respiratory compromise. Patient was also noted to have nonsustained ventricular arrhythmias which was asymptomatic. She has a known history of cardiomyopathy which was thought to be secondary to anthracyclines and possibly radiation therapy and she has an AICD in place and follows with Dr. Lau at [facility]. Echocardiogram done reveals an ejection fraction of 60% with grade 1/4 diastolic dysfunction. Patient is advised to follow-up with Dr. Miguel Jarrell who is forester aide for further evaluation. Due to concerns about a parapneumonic effusion she was started on ceftriaxone however after consultation with infectious disease was felt that there was no need for antibiotic treatment. Urinalysis also suggested pyuria however patient was asymptomatic and so it was felt that this did not need to be treated as a urinary tract infection was ruled out. She did receive 3days of IV ceftriaxone but she will not be discharged home on antibiotics In terms of a stroke temporary deficits had completely resolved by the time I saw her within the first 24 hours and she has had no further complaints. She was seen by physical therapy. Carotid Doppler studies done was negative. MRI was not done due to patient's pacemaker/AICD. Patient has remained hemodynamically stable and at this time as she has appointment set up with a needlemaker as well as her PCP in about 5 days. N melanieds further workup and evaluation of her recurrent pleural effusion and I will also suggest follow-up with her oncologist however as she has remained hemodynamically stable and no further interventions are been planned at this time she is been discharged home for further outpatient workup. Physical Exam Vital Signs: Temp Pulse Resp BP Pulse Ox 98.6 F 65 16 121/80 97 02/15/18 12:48 02/15/18 16:00 02/15/18 16:00 02/15/18 16:00 02/15/18 16:00 Intake & Output 02/14/18 02/15/18 02/16/18 06:59 06:59 06:59 Intake Total 1150 1311 236 Output Total 1725 1350 Balance -575 -39 236 Weight 72.8 kg 74.6 kg General appearance: PRESENT: no acute distress, well-developed, well-nourished Head exam: PRESENT: atraumatic, normocephalic Eye exam: PRESENT: conjunctiva pink, EOMI, PERRLA. ABSENT: scleral icterus Ear exam: PRESENT: normal external ear exam Mouth exam: PRESENT: moist, tongue midline Neck exam: ABSENT: carotid bruit, JVD, lymphadenopathy, thyromegaly Respiratory exam: PRESENT: clear to auscultation sharri. ABSENT: rales, rhonchi, wheezes Cardiovascular exam: PRESENT: RRR. ABSENT: diastolic murmur, rubs, systolic murmur Pulses: PRESENT: normal dorsalis pedis pul Vascular exam: PRESENT: normal capillary refill GI/Abdominal exam: PRESENT: normal bowel sounds, soft. ABSENT: distended, guarding, mass, organolmegaly, rebound, tenderness Rectal exam: PRESENT: deferred Extremities exam: PRESENT: full ROM. ABSENT: calf tenderness, clubbing, pedal edema Musculoskeletal exam: PRESENT: other - bilat mastectomies Neurological exam: PRESENT: alert, awake, oriented to person, oriented to place , oriented to time, oriented to situation, CN II-XII grossly intact. ABSENT: motor sensory deficit Psychiatric exam: PRESENT: appropriate affect, normal mood. ABSENT: homicidal ideation, suicidal ideation Skin exam: PRESENT: dry, intact, warm. ABSENT: cyanosis, rash Results Laboratory Results: 02/12/18 04:34 02/15/18 14:49 02/13/18 02/13/18 02/15/18 14:51 14:51 14:49 Sodium 137.8 Potassium 3.5 L Chloride 104 Carbon Dioxide 19 L Anion Gap 15 BUN 13 Creatinine 0.83 Est GFR ( Amer) > 60 Est GFR (Non-Af Amer) > 60 Glucose 117 H Calcium 9.2 Fluid Glucose 92 Fluid Total Protein 4.0 Fluid LDH 170 Impressions: Head CT 02/11/18 19:10 IMPRESSION: NORMAL BRAIN CT WITHOUT CONTRAST. EVIDENCE OF ACUTE STROKE: NO. Chest X-Ray 02/13/18 00:00 IMPRESSION: NO ACUTE RADIOGRAPHIC FINDING IN THE CHEST. Thoracentesis Ultrasound 02/13/18 00:00 IMPRESSION: SUCCESSFUL THORACENTESIS USING ULTRASOUND GUIDANCE. Carotid Doppler Study 02/14/18 00:00 IMPRESSION: NO HEMODYNAMICALLY SIGNIFICANT STENOSIS. Qualifiers - * PATIENT BEING DISCHARGED WITH ANY OF THE FOLLOWING DIAGNOSIS: No Plan Time Spent: Greater than 30 Minutes
[2018-02-15] MEDS ORDERED: POTASSIUM CHLORIDE 10 MEQ CAPSULE.ER PO ONE ×2 (16:47→17:00)
[2018-02-15 16:55] VITALS: BP 129/79
== END 2018-02-15 17:46 | disposition home or self-care (01) | DRG 69 ==
LOC: ER 19:06 → EH 22:09 → 3W 02-12 00:54
PROVIDERS: ADMIT Internal Medicine; ATTEND Internal Medicine
PROC: 0W9B3ZX Drainage of Left Pleural Cavity, Percutaneous Approach, Diagnostic (ICD-10-PCS; principal; 2018-02-13)
DX: G45.9 Transient cerebral ischemic attack, unspecified (principal); J90 Pleural effusion, not elsewhere classified; R47.01 Aphasia; I50.22 Chronic systolic (congestive) heart failure; I42.7 Cardiomyopathy due to drug and external agent; I25.10 Atherosclerotic heart disease of native coronary artery without angina pectoris; I89.8 Other specified noninfective disorders of lymphatic vessels and lymph nodes; E78.00 Pure hypercholesterolemia, unspecified; I11.0 Hypertensive heart disease with heart failure; I89.0 Lymphedema, not elsewhere classified; F32.9 Major depressive disorder, single episode, unspecified; F41.9 Anxiety disorder, unspecified; E11.9 Type 2 diabetes mellitus without complications; F03.90 Unspecified dementia, unspecified severity, without behavioral disturbance, psychotic disturbance, mood disturbance, and anxiety; K21.9 Gastro-esophageal reflux disease without esophagitis; K44.9 Diaphragmatic hernia without obstruction or gangrene; I25.2 Old myocardial infarction; Z79.899 Other long term (current) drug therapy; Z88.3 Allergy status to other anti-infective agents; Z88.8 Allergy status to other drugs, medicaments and biological substances; Z85.3 Personal history of malignant neoplasm of breast; Z95.810 Presence of automatic (implantable) cardiac defibrillator; Z92.3 Personal history of irradiation; Z87.891 Personal history of nicotine dependence; Z79.4 Long term (current) use of insulin; Z90.49 Acquired absence of other specified parts of digestive tract; Z90.710 Acquired absence of both cervix and uterus; Z90.13 Acquired absence of bilateral breasts and nipples; Z82.49 Family history of ischemic heart disease and other diseases of the circulatory system; Z82.3 Family history of stroke; Z80.8 Family history of malignant neoplasm of other organs or systems
CPT/HCPCS: 32555; 36415; 70450; 71045; 80048; 80053; 80061; 81001; 82550; 82553; 82945; 82962; 83036; 83615; 84155; 84157; 84311; 84484; 85025; 85610; 85730; 87070; 87075; 87086; 87205; 88305; 89050; 93005; 93010; 93306; 93880; 99291; G8978-GP; G8979-GP; G8987-GO; G8988-GO; G8989-GO; J0696; J1650; J3490